=== PATIENT | female | born 1950 | race Caucasian/White ===

== ENCOUNTER 2018-08-08 17:50 | Emergency (ER) | payer MEDICARE, MEDICAID ==
[~2018-08-08] VITALS: Ht 154.9 cm; Wt 65.8 kg
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
--- NOTE | 2018-08-08 19:09 | NUR ---
X-RAY TECH AT [facility]
--- NOTE | 2018-08-08 19:19 | NUR ---
RECEIVED REPORT FROM GIOVANNY VIVEROS FOR YUNG. PT RESTING IN BED WITH NO S/S OF DISTRESS NOTED. WILL CONTINUE TO MONITOR PT
--- NOTE | 2018-08-08 19:51 | NUR ---
PT AMBULATED TO RESTROOM FOR URINE SAMPLE
[2018-08-08 20:03] LABS: APPEARANCE,URINE Clear (CLEAR); BASOPHILS % (AUTO) 0.2 % (0.0-2.0); BILIRUBIN,URINE Negative (NEGATIVE); BLOOD, URINE Negative Ery/uL (NEGATIVE); COLOR,URINE Yellow (YELLOW); EOSINOPHILS % (AUTO) 0.5 % (0.0-6.0); HEMATOCRIT 39 % (33-45); HEMOGLOBIN 13.4 g/dL (11.5-14.8); KETONES,URINE Negative (NEGATIVE); LEUKOCYTE ESTERASE ,URINE Moderate (NEGATIVE); LYMPHOCYTES # (AUTO) 2.6 /CMM (0.8-4.8); LYMPHOCYTES % (AUTO) 22.3 % (20.0-44.0); MEAN CORPUSCULAR HGB CONC 34 g/dl (31.0-36.0); MEAN CORPUSCULAR VOLUME 86 fL (82-100); MONOCYTES # (AUTO) 0.5 /CMM (0.1-1.30); MONOCYTES % (AUTO) 4.3 % (2.0-12.0); NEUTROPHILS # (AUTO) 8.4 /CMM (1.8-8.9); NEUTROPHILS % (AUTO) 72.7 % (43.0-81.0); NITRITE, URINE Negative (NEGATIVE); PLATELET COUNT (AUTO) 357 /CMM (150-450); PROTEIN,URINE Negative (NEGATIVE); RED BLOOD CELL COUNT(AUTO) 4.58 MIL/uL (4.0-5.2); UGLUCOSE Negative (NEGATIVE); UROBILINOGEN,URINE 0.2 EU/dL (0.2); WHITE BLOOD COUNT (AUTO) 11.6 K/uL (4.3-11.0)
[2018-08-08 20:11] LABS: BACTERIA,URINE Many /HPF (None Seen); RBC,URINE 0-2 /HPF (0-2); SQUAMOUS EPITHELIAL CELL,UR Few /HPF (None Seen); WBC,URINE 21-50 /HPF (0-3)
[2018-08-08 20:15] LABS: CREATININE 0.7 mg/dL (0.6-1.3)
[2018-08-08] MEDS ORDERED: IOHEXOL-300 100 ML VIAL IV ONE (20:25)
[2018-08-08] MEDS ORDERED: IV NS 0.9% 250 ML IV ONE (20:25)
[2018-08-08] MEDS ORDERED: CT SWABBABLE VALVE TRANS SET 1 EA INFUS.SET MC ONE (20:25)
[2018-08-08] MEDS ORDERED: CEFTRIAXONE 1GM BAG (ER ONLY) 1 GM/50 ML PIGGYBACK IV ONE (20:30)
[2018-08-08] MEDS ORDERED: CEFTRIAXONE 1GM BAG (ER ONLY) 50 ML IV ONE (20:50)
--- NOTE | 2018-08-08 21:38 | NUR ---
RT CALLED FOR INCENTIVE SPIROMETER TEACHING
--- NOTE | 2018-08-08 21:43 | NUR ---
Patient discharged to home in stable condition. Written and verbal after care instructions given. Patient verbalizes understanding of instruction.IV removed. Catheter intact and site benign. Pressure and 4x4 applied to site. No bleeding noted. NO S/S OF DISTRESS NOTED UPON DISCHARGE.
--- NOTE | 2018-08-08 21:45 | NUR ---
RT BEDSIDE WITH PT
[2018-08-08 21:46] VITALS: BP 158/84
== END 2018-08-08 21:47 | disposition home or self-care (01) ==
LOC: ER 17:52
DX: S40.812A Abrasion of left upper arm, initial encounter (principal); R07.81 Pleurodynia; N39.0 Urinary tract infection, site not specified; M62.838 Other muscle spasm; I10 Essential (primary) hypertension; V49.59XA Passenger injured in collision with other motor vehicles in traffic accident, initial encounter; Y93.89 Activity, other specified; Y92.410 Unspecified street and highway as the place of occurrence of the external cause; Y99.8 Other external cause status
CPT/HCPCS: 36415; 71100; 74177; 80048; 81001; 85025; 87077; 87086; 94799; 96365; 99285; A4606; J0696; J7050; Q9967; 81000-TC; Z7610

== ENCOUNTER 2019-09-20 06:08 | Emergency (ER) | payer MEDICAID, MEDICARE ==
[~2019-09-20] VITALS: Ht 165.1 cm; Wt 60.3 kg
[2019-09-20] MEDS ORDERED: MECLIZINE HCL 25 MG TABLET ONE (06:16)
--- NOTE | 2019-09-20 06:20 | NUR ---
PT BIBRA. AAOX4. AMBULATORY. PT C/O FEELING LIGHTHEADED TODAY. VSS. RR EVEN AND UNLABORED. NO ACUTE DISTRESS NOTED. NO NEURO DEFICIT, RUI. AT BEDSIDE.
--- NOTE | 2019-09-20 06:24 | NUR ---
Butter Printer at bedside for lab collection.
[2019-09-20] MEDS ORDERED: IV NS 0.9% 1,000 ML BAG IV ONE (06:30)
[2019-09-20] MEDS ORDERED: MECLIZINE HCL 12.5 MG TABLET PO ONE (06:30)
[2019-09-20] MEDS ORDERED: TETRACAINE HCL 0.5% OPHTALMIC 15 ML BOTTLE OP ONE (06:30)
[2019-09-20] MEDS ORDERED: FLUORESCEIN SODIUM OPHTH 1 EA STRIP OP ONE (06:30)
[2019-09-20 06:32] LABS: BASOPHILS % (AUTO) 0.6 % (0.0-2.0); EOSINOPHILS % (AUTO) 1.6 % (0.0-6.0); HEMATOCRIT 37 % (33-45); HEMOGLOBIN 12.6 g/dL (11.5-14.8); LYMPHOCYTES # (AUTO) 2.1 /CMM (0.8-4.8); LYMPHOCYTES % (AUTO) 42.5 % (20.0-44.0); MEAN CORPUSCULAR HGB CONC 34 g/dl (31.0-36.0); MEAN CORPUSCULAR VOLUME 87 fL (82-100); MONOCYTES # (AUTO) 0.3 /CMM (0.1-1.30); MONOCYTES % (AUTO) 6.4 % (2.0-12.0); NEUTROPHILS # (AUTO) 2.4 /CMM (1.8-8.9); NEUTROPHILS % (AUTO) 48.9 % (43.0-81.0); PLATELET COUNT (AUTO) 266 /CMM (150-450); RED BLOOD CELL COUNT(AUTO) 4.29 MIL/uL (4.0-5.2)
--- NOTE | 2019-09-20 06:44 | NUR ---
ORANGE JUICE PROVIDED TO PT
--- NOTE | 2019-09-20 06:45 | NUR ---
XRAY AT BEDSIDE
--- NOTE | 2019-09-20 07:04 | NUR ---
PT RESTING COMFORTABLY. FAMILY AT BEDSIDE
[2019-09-20 07:07] LABS: CALCIUM, SERUM 9.1 mg/dL (8.5-10.1); CARBON DIOXIDE 25 mmol/L (21-32); CHLORIDE 107 mmol/L (98-107); CREATININE 0.6 mg/dL (0.6-1.3); GLUCOSE 97 mg/dL (74-106); POTASSIUM 4.2 mmol/L (3.5-5.1); SODIUM SERUM 141 mmol/L (136-145); UREA NITROGEN, BLOOD 15 mg/dL (7-18)
--- NOTE | 2019-09-20 07:31 | NUR ---
Patient discharged to home in stable condition. Written and verbal after care instructions given. Patient verbalizes understanding of instruction and RX. IV removed. Catheter intact and site benign. Pressure and 4x4 applied to site. No bleeding noted. PT ambulatory with a steady gait.
[2019-09-20 07:33] VITALS: BP 128/72
== END 2019-09-20 07:34 | disposition home or self-care (01) ==
LOC: ER 06:11
DX: R55 Syncope and collapse (principal); R42 Dizziness and giddiness; I10 Essential (primary) hypertension
CPT/HCPCS: 36415; 71045; 80048; 82962; 84484; 85025; 85730; 93005; 96360; 99284; J7030; J8597